=== PATIENT | female | born 1990 | race Two or more races ===

== ENCOUNTER 2023-10-30 13:45 | Outpatient (AMB) | payer OTHER, SELFPAY ==
--- NOTE | 2023-10-30 13:48 | A.OFFVIS_ITS ---
Vital Signs 10/30/23 13:50 Height 5 ft 3 in Weight 184 lb 1.376 oz BMI 32.6 BP 108/76 Blood Pressure Location Rt brachial Position Sitting Pulse 75 Pulse Source Pulse Oximeter Pulse Oximetry (%) 98 Oxygen Delivery Method Room Air Intake Visit Reasons: chronic cough Assistant Director Of Security Services: Assistant Director Of Security Present Assistant Director Of Security Name: [id number] [place] Allergies No Known Allergies Allergy (Verified 10/30/23 13:57) HPI HPI chronic cough: Details: Tracy is a pleasant 33 year old female, never smoker, with underlying HTN, GERD and anxiety. She was referred by PCP for pulmonary evaluation. She reports more notable wheezing, chest tightness and dyspnea on exertion over the last 4-5 months. She denies h/o asthma. She has noticed symptoms being triggered by particular scents. She denies any seasonal allergies. Reports occasional post nasal drip, however mild and uses flonase with good effect. She reports GERD symptoms are controlled. She denies any pertinent family history. She denies any occupational exposures. Review of Systems Const Denies chills, Denies excessive sweating, Denies fever(s), Denies headache(s) and Denies night sweats Eyes Denies dry eyes, Denies irritation and Denies itchy eyes ENT Reports Normal hearing present, Denies headache(s), Denies nasal congestion, Denies nasal discharge and Denies sore throat Card Denies chest pain, Denies chest pain at rest, Denies chest pain with activity, Denies claudication, Denies dyspnea, Denies orthopnea and Denies paroxysmal nocturnal dyspnea Resp Denies chest congestion, Denies cough, Denies excessive phlegm production, Denies pain on inspiration, Denies pain with cough, Denies dyspnea and Denies stridor Musc Denies myalgias Neuro Reports Normal hearing present and Denies headache(s) Endo Denies excessive sweating Stephan/Lymph Denies lymphadenopathy Aller/Immun Denies itchy eyes and Denies seasonal rhinorrhea Physical Exam Vital Signs: Last Vital Signs Pulse 75 10/30/23 13:50 BP 108/76 10/30/23 13:50 Pulse Ox 98 10/30/23 13:50 Oxygen Delivery Method Room Air 10/30/23 13:50 BMI result Body Mass Index 32.6 Const General: cooperative, healthy appearing, comfortable, no acute distress, well developed and alert Orientation/consciousness: patient oriented x3 Limitations: no limitations HEENT Head: Yes normal to inspection, Yes normocephalic and Yes atraumatic Ears: hearing grossly normal bilaterally and external ears normal Eyes General: appearance normal, both eyes and all related structures Eyelids: Yes eyelids normal Sclerae: sclerae normal EOM: EOMs intact bilaterally Neck Neck: Yes normal visual inspection and Yes no lymphadenopathy Lymphatic: no lymphadenopathy noted Chest Chest palpation & inspection: normal inspection of the chest Resp Effort & Inspection: normal respiratory effort, able to speak in complete sentences, no audible wheezes, no cough, no stridor, not tachypneic, no tripod positioning and no use of accessory muscles Auscultation: clear to auscultation bilaterally Cardio Jugular venous distension: no JVD Rate: regular rate Rhythm: regular rhythm Skin Other: warm, dry General skin exam: no rashes or lesions noted Neuro General: patient oriented x3 Cranial nerves: Yes Normal hearing present Cognition (Neuro): normal cognition Gait exam (Neuro): Normal gait present Extrem General: Yes normal to inspection, Yes capillary refill normal, Yes no clubbing, cyanosis or edema and Yes no pedal edema Psych Appearance: grossly normal and well kempt Speech and movement: Normal speech and movement present and Clear speech present Affect: normal affect Attitude: cooperative Thought process: Normal thought process present Thought content: Normal thought content present Insight: Good insight present (Psych) Judgement: Good judgement present (Psych) Assessment & Plan Assessment & Plan (1) Reactive airway disease: Code(s): J45.909 - Unspecified asthma, uncomplicated Category: Medical (2) Dyspnea on exertion: Code(s): R06.09 - Other forms of dyspnea Category: Medical Plan Tracy presents with symptoms suggestive of asthma. Will send for PFT to assess and empirically start ICS. Discussed importance of good oral hygiene to prevent thrush. All questions were answered and patient is in agreement of plan. Will follow up to review results or sooner if needed. Orders: Orders PFT pulmonary function test Today R06.09 - Other forms of dyspnea Medications: New fluticasone furoate 100 mcg/actuation (Arnuity Ellipta) 1 inh inhalation DAILY 30 ea 3RF Coding Level of Care Code New Pt Level 3 (71003) Diagnoses Reactive airway disease J45.909 Dyspnea on exertion R06.09
[2023-10-30 13:50] VITALS: BP 108/76; PULSE 75; O2SAT 98; BMI 32.6
== END 2023-10-30 14:49 | disposition home or self-care (01) ==
PROVIDERS: PCP Hospitalist; Visit Provider Nurse Practitioner Family
DX: J45.909 Unspecified asthma, uncomplicated (principal); R06.09 Other forms of dyspnea
CPT/HCPCS: 99203

== ENCOUNTER → 2023-10-30 13:45 | Outpatient (BNVA) | payer OTHER, SELFPAY | PROVIDERS: PCP Hospitalist; Visit Provider Nurse Practitioner Family | DX: J45.909 Unspecified asthma, uncomplicated (principal); R06.09 Other forms of dyspnea | CPT/HCPCS: 99202 ==

== ENCOUNTER 2024-02-01 14:24 | Emergency (ER) | payer OTHER, SELFPAY | END 2024-02-01 14:57 | disposition left against medical advice (07) | PROVIDERS: Emergency Provider Emergency Medicine; PCP Hospitalist | DX: J45.909 Unspecified asthma, uncomplicated (principal); Z53.21 Procedure and treatment not carried out due to patient leaving prior to being seen by health care provider ==

== ENCOUNTER 2024-02-01 14:33 | Outpatient (REF) | payer OTHER, SELFPAY ==
[2024-02-01 10:22] VITALS: PULSE 74; O2SAT 99
--- NOTE | 2024-02-01 14:41 | PFT_ITS ---
Flows: FEV1: 71 % of predicted at 2.20 L FVC: 66 % of predicted at 2.43 L FEV1/FVC: 91 % Secondary to unavailability of Romanian site interpreter patient was only willing to try spirometry testing. Impression: Spirometry suggests restrictive ventilatory defect. Secondary to unavailability of Romanian site interpreter patient was only willing to try spirometry testing. Full pulmonary function test rescheduled. MTDD
== END 2024-02-01 14:34 | disposition home or self-care (01) ==
LOC: HO.RESP 14:33
PROVIDERS: PCP Hospitalist; Visit Provider Nurse Practitioner Family
DX: R06.09 Other forms of dyspnea (principal)
CPT/HCPCS: 94010; 94640; 94727; 94729

== ENCOUNTER → 2024-02-01 14:41 | Outpatient (BNV) | payer OTHER, SELFPAY | PROVIDERS: PCP Hospitalist; Visit Provider Internal Medicine Pulmonary Disease | DX: R06.09 Other forms of dyspnea (principal) | CPT/HCPCS: 94060 ==

== ENCOUNTER 2024-06-12 12:45 | Outpatient (REF) | payer OTHER, SELFPAY ==
--- NOTE | 2024-06-12 12:45 | PFT_ITS ---
Indication: Dyspnea Spirometry [FEV1 to FVC 88%; FEV1 2.61 L; FVC 2.96 L. No significant response to bronchodilators noted.] Lung Volumes [Total lung capacity 78% predicted; expiratory reserve volume 56% predicted] Diffusion Capacity [DLCO 94% predicted] Comparisons [none] Interpretation [No obstructive ventilatory defect. No significant response to bronchodilators noted. The patient does have a restrictive ventilatory defect consistent mild restrictive lung disease. His expiratory reserve volume is also decreased likely secondary to an elevated BMI. Capacity is within normal limits. Correlation warranted.] MTDD
[2024-06-12 13:32] VITALS: PULSE 92; O2SAT 99
--- OUTSIDE RECORDS SUMMARY | 2024-06-12 13:49 | XMS_ITS ---
Author Organization [facility] Address [address] [place] [id number] Care Team Providers Care Triage Technician Name Role Phone BEAN DAVIDSON Primary Care Provider REASON FOR VISIT Lab/Rx Medications Medication SIG (Take, Route, Frequency, Duration) Notes Start Date End Date Status Vitamin D (Ergocalciferol) 1.25 MG (21915 UT) TAKE 1 CAPSULE BY MOUTH WEEKLY Orally once a week for 90 days Active Encounters Encounter Location Date Provider Diagnosis [facility] [address] [phone] 06/10/2024 BEAN DAVIDSON Plan Of Treatment Medication Medication Name Sig Start Date Stop Date Notes Vitamin D (Ergocalciferol) 1 .25 MG (17538 UT) TAKE 1 CAPSULE BY MOUTH WEEKLY Orally once a week for 90 days Next Appt Details Provider Name:BEAN DAVIDSON , 06/02/2025 01:00:00 PM, [address] [place] [address], [place], [phone], Progress Notes * Tracy DENISDOB:1990 (33 yo F)Acc No.[id number]:06/10/2024 Patient:?ADEEL Tracy :1990???Age:33 Y???Sex:Female Address:[address] [place] [address] [place], [address] * Refills? Refill Vitamin D (Ergocalciferol) Capsule, 1.25 MG (69339 UT), Orally, 12, TAKE 1 CAPSULE BY MOUTH WEEKLY, once a week, 90 days, Refills=0 * true * Date:? Generated for Lexx hood/Livan/Kumar on:?06/12/2024 01:49 PM EDT
--- OUTSIDE RECORDS SUMMARY | 2024-06-12 13:49 | XMS_ITS | Patient Health Record ---
Author Organization [facility] Address [address] [place] [address] Care Team Providers Care Awning Installer Name Role Phone BEAN DAVIDSON Primary Care Provider Jazmynshraddha Phil Unavailable [phone] Allergies No Known Allergies Results Component Value Reference Range Notes CBC, Platelet, No Differenti al-[id number] Reviewed date:06/10/2024 08:06:02 AM Interpretation: Performing Lab:[place]ty [place], [address] [facility], Phone - [phone], Director - MDJodry Notes/Report: WBC 6.7 3.4-10.8 x10E3/uL RBC 4.93 3.77-5.28 x10E6/uL Hemoglobin 12.5 11.1-15.9 g/dL Hematocrit 39.0 34.0-46.6 % MCV 79 79-97 fL MCH 25.4 26.6-33.0 pg MCHC 32.1 31.5-35.7 g/dL RDW 12.8 11.7-15.4 % Platelets 217 150-450 x10E3/uL Lipid Panel-[id number] Reviewed date:06/10/2024 08:06:05 AM Interpretation: Performing Lab:Kitty [place], [address] [facility], [place], Phone - [phone], Director - MDJodry Notes/Report: Cholesterol, Total 182 100-199 mg/dL Triglycerides 90 0-149 mg/dL HDL Cholesterol 45 >39 mg/dL VLDL Cholesterol Kade 17 5-40 mg/dL LDL Chol Calc (NIH) 120 0-99 mg/dL Comp. Metabolic Panel (14)-[id number] Reviewed date:06/10/2024 08:06:07 AM Interpretation: Performing Lab:Kitty [place], [facility], Phone - [phone], Director - [facility] Notes/Report: Glucose 81 70-99 mg/dL BUN 10 6-20 mg/dL Creatinine 0.62 0.57-1.00 mg/dL eGFR 122 >59 mL/min/1.73 BUN/Creatinine Ratio 16 9-23 Sodium 138 134-144 mmol/L Potassium 4.0 3.5-5.2 mmol/L Chloride 103 96-106 mmol/L Carbon Dioxide, Total 22 20-29 mmol/L Calcium 9.2 8.7-10.2 mg/dL Protein, Total 6.8 6.0-8.5 g/dL Albumin 4.3 3.9-4.9 g/dL Globulin, Total 2.5 1.5-4.5 g/dL Bilirubin, Total 1.1 0.0-1.2 mg/dL Alkaline Phosphatase 79 44-121 IU/L AST (SGOT) 11 0-40 IU/L ALT (SGPT) 12 0-32 IU/L 25-Hydroxyvitamin D LCMS D2+ [id number] Reviewed date:06/10/2024 12:21:22 PM Interpretation: Performing [facility] [address] [place] [address], Phone - [phone], Director - [facility] Notes/Report: 25-Hydroxy, Vitamin D 13 Reference Range: All Ages: Target levels 30 - 100 25-Hydroxy, Vitamin D-2 6.3 This test was developed and its performance characteristics determined by [facility]. It has not been cleared or approved by the Food and Drug Administration. 25-Hydroxy, Vitamin D-3 6.6 This test was developed and its performance characteristics determined by [facility]. It has not been cleared or approved by the Food and Drug Administration. Comp. Metabolic Panel (14)-3 [id number] Reviewed date:08/01/2023 12:00:25 PM Interpretation: Performing [facility], Phone - [phone], Director - [facility] Notes/Report: Glucose 83 70-99 mg/dL BUN 12 6-20 mg/dL Creatinine 0.63 0.57-1.00 mg/dL eGFR 122 >59 mL/min/1.73 BUN/Creatinine Ratio 19 9-23 Sodium 139 134-144 mmol/L Potassium 4.3 3.5-5.2 mmol/L Chloride 105 96-106 mmol/L Carbon Dioxide, Total 21 20-29 mmol/L Calcium 9.1 8.7-10.2 mg/dL Protein, Total 6.3 6.0-8.5 g/dL Albumin 4.0 4.0-5.0 g/dL Globulin, Total 2.3 1.5-4.5 g/dL Bilirubin, Total 0.6 0.0-1.2 mg/dL Alkaline Phosphatase 82 44-121 IU/L AST (SGOT) 12 0-40 IU/L ALT (SGPT) 9 0-32 IU/L Vitamin D, [id number] Reviewed date:08/01/2023 12:00:11 PM Interpretation: Performing Lab:Kitty [place], [address] [facility], Phone - [phone], Director - Mariam Notes/Report: Vitamin D, 25-Hydroxy 11.9 30.0-100.0 ng/mL Vitamin D deficiency has been defined by the [place] [employer] and an Endocrine Society practice guideline as a level of serum 25-OH vitamin D less than 20 ng/mL (1,2). The Endocrine Society went on to further define vitamin D insufficiency as a level between 21 and 29 ng/mL (2). 1. IOM ([place] [employer]). 2010. Dietary reference intakes for calcium and D. [place]: The National Academies Press. 2. Kumar MF, Ashley NC, Atul NIX, et al. Evaluation, treatment, and prevention of vitamin D deficiency: an Endocrine Society clinical practice guideline. JCEM. 2010; 96(7):1911-30. CBC with Diff, Platelet, NLR -[id number] Reviewed date:08/01/2023 11:59:57 AM Interpretation: Performing Lab:[place]ord [place], [address] [facility], [place], Phone - [phone], Director - Mariam Notes/Report: WBC 7.1 3.4-10.8 x10E3/uL RBC 4.41 3.77-5.28 x10E6/uL Hemoglobin 11.4 11.1-15.9 g/dL Hematocrit 36.6 34.0-46.6 % MCV 83 79-97 fL MCH 25.9 26.6-33.0 pg MCHC 31.1 31.5-35.7 g/dL RDW 14.1 11.7-15.4 % Platelets 232 150-450 x10E3/uL Neutrophils 65 Not Estab. % Lymphs 27 Not Estab. % Monocytes 4 Not Estab. % Eos 3 Not Estab. % Basos 1 Not Estab. % Neutrophils (Absolute) 4.6 1.4-7.0 x10E3/uL Lymphs (Absolute) 1.9 0.7-3.1 x10E3/uL Neut/Lymph Ratio 2.4 0.0-2.9 ratio Published COVID-19 studies suggest: Low likelihood of severe COVID-19 disease progression 0.0-2.9 High likelihood of severe COVID-19 disease progression >4.9 Monocytes(Absolute) 0.3 0.1-0.9 x10E3/uL Eos (Absolute) 0.2 0.0-0.4 x10E3/uL Baso (Absolute) 0.0 0.0-0.2 x10E3/uL Immature Granulocytes 0 Not Estab. % Immature Grans (Abs) 0.0 0.0-0.1 x10E3/uL Vitamin D, [id number] Reviewed date:10/02/2023 08:52:42 AM Interpretation: Performing Lab:Kitty [place], [address] [place] [address], Phone - [phone], Director - Mariam Notes/Report: Vitamin D, 25-Hydroxy 23.7 30.0-100.0 ng/mL Vitamin D deficiency has been defined by the [place] [employer] and an Endocrine Society practice guideline as a level of serum 25-OH vitamin D less than 20 ng/mL (1,2). The Endocrine Society went on to further define vitamin D insufficiency as a level between 21 and 29 ng/mL (2). 1. IOM ([place] [employer]). 2010. Dietary reference intakes for calcium and D. [place]: The National Academies Press. 2. Kumar MF, Ashley GREEN, Atul NIX, et al. Evaluation, treatment, and prevention of vitamin D deficiency: an Endocrine Society clinical practice guideline. JCEM. 2010; 96(7):1911-30. Reason For Referral Reason 48 hour BP monitor- Hypertension, reading in the office is normal, done at [facility] it ranged between 150-160/110-100 Diagnosis 1 Essential (primary) hypertension (I10) Referral Organization [facility] Referring Provider First Name Phil Referring Provider Last Name Lianna Referred Provider Specialty Nephrology Clinical Notes Faxed to Becky WESTBROOK Latraya 08/01/2023 02:06:24 PM > Referral Priority Urgent Reason Evaluation and manag ement - 48 hr BP Monitor Diagnosis 1 Essential (primary) hypertension (I10) Referral Organization [facility] Referring Provider First Name Phil Referring Provider Last Name Lianna Referred Provider Specialty Nephrology General Notes Referral sent to [facility] - Dept will call patient for scheduling.Flor Latraya 08/17/2023 08:47:08 AM > Referral Priority Routine Reason Please davidson jimenez Diagnosis 1 Chronic cough (R05.3 ) Referral Organization [facility] Referring Provider First Name Phil Referring Provider Last Name Lianna Referred Provider Specialty Pulmonology General Notes Faxed to Richard Diaz Brittney 09/28/2023 01:05:08 PM > Referral Priority Routine Medications Medication SIG (Take, Route, Frequency, Duration) Notes Start Date End Date Status Prazosin HCl 2 MG 1 capsule at bedtime Orally Once a day for 30 day(s) Active Ciprofloxacin-dexAMETHason e 0.3-0.1 % 4 drops into affected ear Otic Twice a day for 7 days 09/07/2023 Active Ergocalciferol 1.25 MG (69663 UT) 1 capsule every week Orally 12 weeks for 30 days 07/31/2023 Not-Taking Ibuprofen 600 MG 1 tablet with food o r milk as needed Orally once a day Active Vitamin D3 20 MCG (800 UNIT) 1 tablet Orally Once a day for 30 days 09/25/2023 Active Magnesium Oxide 400 MG 1 tablet as neede d Orally Once a day for 30 day(s) Active Albuterol Sulfate HFA 108 (90 Base) MCG/ACT 1 puff as needed Inhalation every 4 hrs for 30 days 09/07/2023 Active Doxepin HCl 25 MG 1 capsule at bedtime Orally Once a day for 30 day(s) Active FLUoxetine HCl 20 MG 1 capsule Orally On ce a day for 30 day(s) Active Omeprazole 20 MG TAKE 1 CAPSULE BY MOUTH EVERY DAY 30 MINUTES BEFORE MORNING MEAL FOR 90 DAYS for 90 Active SUMAtriptan Succinate 50 MG TAKE 1 TABLET BY MOUTH TWICE A DAY AT LEAST 2 HOURS BETWEEN DOSES NEEDED FOR 30 DAYS for 30 Active Loratadine 10 MG 1 tablet Orally Once a day for 90 days 12/01/2022 Active Cyclobenzaprine HCl 5 MG 1 tablet at bed time as needed Orally Once a day for 30 day(s) Active Ergocalciferol 1.25 MG (79587 UT) 1 capsule Orally once a week for 30 days Not-Taking Xulane 150-35 MCG/24HR as directed Transdermal Active Gabapentin 100 MG 2 capsule Orally Onc e a day for 30 days Active traZODone HCl 100 MG 1 tablet at bedtime Orally Once a day for 30 day(s) Active Fluticasone Propionate 50 MCG/ACT SPRAY 1 SPRAY INTO EACH NOSTRIL EVERY DAY FOR 90 DAYS for 90 Active Venlafaxine HCl 37.5 MG 1 tablet with fo od Orally Once a day for 30 day(s) Active Ofloxacin 0.3 % 10 drops into affect ed ear Otic twice a day for 7 days 07/27/2023 Active Vitamin D (Ergocalciferol) 1.25 MG (60755 UT) TAKE 1 CAPSULE BY MOUTH WEEKLY Orally once a week for 90 days Active Immunizations Vaccine Route Administration Date Status Comme nts COVID Unknown 01/20/2021 Administered pfizer COVID 19 Pfizer Unknown 09/08/2020 Administered COVID Pfizer Unknown 03/15/2021 Administered Hep B, adult dosage, for intramuscular use Unknown 11/05/2015 Administered MMR Unknown 07/01/2015 Administered MMR Unknown 08/01/2015 Administered Tdap Unknown 09/23/2015 Administered Tdap Unknown 06/28/2016 Administered Social History Tobacco Use: Social History Observation Description Date Details (start date - stop date) Never Smoker NA - NA Tobacco Use/Smoking Question Answer Notes Are you a nonsmoker Problems Problem Type SNOMED Code ICD Code Onset Dates Problem Status W/U Status Risk Notes Problem Moderate recurrent major depression (68476821) Major depressive disorder, recurrent, moderate (F33.1) Active confirmed Problem Generalized anxiety disorder (44727000) Generalized anxiety disorder (F41.1) Active confirmed Problem Migraine with aura (7764711) Migraine with aura, not intractable, without status migrainosus (G43.109) Active confirmed Problem Insomnia (652134793) Insomnia, unspecified (G47.00) Active confirmed Problem Essential hypertension (00899575) Essential (primary) hypertension (I10) Active confirmed Problem Gastro-esophageal reflux disease without esophagitis (957394399) Gastro-esophage al reflux disease without esophagitis (K21.9) Active confirmed Problem [id number] Lumbago with sciatica, right side (M54.41) Active confirmed Problem 276461488 Lumbago with sciatica, left side (M54.42) Active confirmed Problem Fibromyalgia (547336076) Fibromyalgia (M79.7) Active confirmed Problem Paresthesia (finding) (73512092) Paresthesia of skin (R20.2) Active confirmed Problem Vitamin D deficiency (58645004) Vitamin D deficiency (E55.9) Active confirmed Problem Chronic fatigue syndrome (65336481) Chronic fatigue (R53.82) Active confirmed Vital Signs Heart Rate 82 /min 05/29/2024 Temperature 98.2 degrees Fahrenheit 05/29/2024 Blood pressure diastolic 80 mm Hg 05/29/2024 Oximetry 99 % 05/29/2024 Height 61 in 05/29/2024 Blood pressure systolic 122 mm Hg 05/29/2024 Weight 187.1 lbs 05/29/2024 BMI 35.35 kg/m2 05/29/2024 Encounters Encounter Location Date Provider Diagnosis [address] [address] 08/30/2023 Phil Dsouza [address] [address] 07/27/2023 Phil Dsouza Spontaneous ecchymos es R23.3 ; Elevated blood-pressure reading, without diagnosis of hypertension R03.0 ; Atypical chest pain R07.89 ; Otalgia, right ear H92.01 ; Chronic fatigue R53.82 ; Vitamin D deficiency, unspecified E55.9 ; Postnasal drip R09.82 and Paresthesia of skin R20.[address] [address] 09/07/2023 Ghadeer Mazloum Essential (primary) hypertension I10 ; Cough R05.9 ; Otalgia, unspecified ear H92.09 and Vitamin D deficiency, unspecified E55.[address] [place] [address] 05/29/2024 BEAN BARRAGAN Annual physical exam Z00.00 ; Generalized anxiety disorder F41.1 ; Major depressive disorder, recurrent, moderate F33.1 ; Migraine with aura, not intractable, without status migrainosus G43.109 ; Vitamin D deficiency E55.9 ; Encounter for screening for cardiovascular disorders Z13.6 ; Postnasal drip R09.82 ; Otalgia, unspecified ear H92.09 and Otalgia, right ear H92.[address] [place] [address] 07/28/2023 [facility] Essential (primary) hypertension I10 [address] [place] [address] 07/28/[address] [place] [address] 09/19/[address] [place] [address] 09/25/2023 [facility] Vitamin D deficiency E55.[address] [place] [address] 09/28/[address] [place] [address] 12/20/[address] [place] [address] 06/10/2024 BEAN BARRAGAN Assessments Encounter Date Diagnosis (ICD Code) Assessment Notes Treatment Notes Treatment Clinical Notes Section Notes 07/27/2023 Elevated blood-pressure reading, without diagnosis of hypertension (ICD-10 - R03.0) Mrs. Boswell is a 32-year-old Setswana-speakin g lady with anxiety/depres evelyn/PTSD, migraine headaches followed by neurology, right knee pain and low back pain and follows up with Dr. Payne here for BP monitoring. Plan as follows: Elevated BP: Blood pressure in the office is WNL. Though she states that the readings at the [facility] pharmacy are elevated. I've placed an order for 48 hour of BP monitor through nephrology. As for now advised patient avoiding Ibuprofen. Appropriate hydration and cut down on salt intake. Atypical chest pain: - Pain is localized been occurring for the past week. BP is normal, HR is normal, Oxygen level is WNL r/o any red flags like dissection, pneumothorax, does not have cough and lungs CTA r/o pneumonia. EKG shows NSR, with HR of 74 no elevated segments no T wave inversions. DDx; gastritis due to Ibuprofen. Advised avoiding NSAIDs and taking omeprazole. Chronic fatigue Ecchymoses - She has not been taking vitamin D pills. I refilled the med. I will also order CBC to r/o anemia as it potentially cause fatigue and ecchymosis and vitamin D for fatigue. - Patient has chronic fatigue she is on multiple medications that can cause fatigue. We have done labs in the past to r/o autoimmune diseases and all were negative. Paresthesia of skin: radiculopathy: EEG done last year and shows that patient has nerve entrapment. She has been doing injections with Dr. Payne. She has an upcoming appt with him. Started patient on gabapentin for radiculopathy. I have rendered the services for this patient under direct supervision of Dr. Davidson, who did not see the patient but was available upon request 07/27/2023 Spontaneous ecchymoses (ICD-10 - R23.3) Mrs. Boswell is a 32-year-old Setswana-speakin g lady with anxiety/depres evelyn/PTSD, migraine headaches followed by neurology, right knee pain and low back pain and follows up with Dr. Payne here for BP monitoring. Plan as follows: Elevated BP: Blood pressure in the office is WNL. Though she states that the readings at the [facility] pharmacy are elevated. I've placed an order for 48 hour of BP monitor through nephrology. As for now advised patient avoiding Ibuprofen. Appropriate hydration and cut down on salt intake. Atypical chest pain: - Pain is localized been occurring for the past week. BP is normal, HR is normal, Oxygen level is WNL r/o any red flags like dissection, pneumothorax, does not have cough and lungs CTA r/o pneumonia. EKG shows NSR, with HR of 74 no elevated segments no T wave inversions. DDx; gastritis due to Ibuprofen. Advised avoiding NSAIDs and taking omeprazole. Chronic fatigue Ecchymoses - She has not been taking vitamin D pills. I refilled the med. I will also order CBC to r/o anemia as it potentially cause fatigue and ecchymosis and vitamin D for fatigue. - Patient has chronic fatigue she is on multiple medications that can cause fatigue. We have done labs in the past to r/o autoimmune diseases and all were negative. Paresthesia of skin: radiculopathy: EEG done last year and shows that patient has nerve entrapment. She has been doing injections with Dr. Payne. She has an upcoming appt with him. Started patient on gabapentin for radiculopathy. I have rendered the services for this patient under direct supervision of Dr. Davidson, who did not see the patient but was available upon request 07/28/2023 Essential (primary) hypertension (ICD-10 - I10) 09/07/2023 Essential (primary) hypertension (ICD-10 - I10) Mrs. Boswell is a 32-year-old Setswana-speakin g lady with anxiety/depres evelyn/PTSD, migraine headaches followed by neurology, right knee pain and low back pain and follows up with Dr. Payne here for follow-up. Plan as follows HTN: Blood pressure in the office is WNL. Has an appt with Dr. Hodges in September for 48 hour of BP monitor through nephrology. Cough: - Lingering cough for the past 4 months. Occurs at night. Experiences wheezing and SOB. No history of asthma. Non-smoker. PE: Lungs CTAB, Oxygen is normal, no accessory muscle use. - Ordered X-ray of the lungs to r/o any abnormalities. Ordered PFTs test to r/o obstructive lung disease. Otalgia: - Ongoing ear pain. Uses q-tips regularly. BL ears are erythematous. No bulging is noted. Started patient on cipro ear drop. Educated on avoiding q-tips. Vitamin D deficiency: - Patient is on Vitamin D supplements. We will repeat labs before next visit. 09/07/2023 Cough (ICD-10 - R05.9) Mrs. Boswell is a 32-year-old Setswana-speakin g lady with anxiety/depres evelyn/PTSD, migraine headaches followed by neurology, right knee pain and low back pain and follows up with Dr. Payne here for follow-up. Plan as follows HTN: Blood pressure in the office is WNL. Has an appt with Dr. Hodges in September for 48 hour of BP monitor through nephrology. Cough: - Lingering cough for the past 4 months. Occurs at night. Experiences wheezing and SOB. No history of asthma. Non-smoker. PE: Lungs CTAB, Oxygen is normal, no accessory muscle use. - Ordered X-ray of the lungs to r/o any abnormalities. Ordered PFTs test to r/o obstructive lung disease. Otalgia: - Ongoing ear pain. Uses q-tips regularly. BL ears are erythematous. No bulging is noted. Started patient on cipro ear drop. Educated on avoiding q-tips. Vitamin D deficiency: - Patient is on Vitamin D supplements. We will repeat labs before next visit. 09/25/2023 Vitamin D deficiency (ICD-10 - E55.9) 05/29/2024 Annual physical exam (ICD-10 - Z00.00) is 33 years old Setswana speaking lady who is accompanied by her for an annual physical. She has generalized anxiety disorder/depre ssion, migraine headaches and she sees neurologist, vitamin D deficiency, fibromyalgia, chronic pain syndrome, lower back pain and she follows with physiatry. She also complains of postnasal dripping. Plan is as follows Migraine headaches. She follows up with Dr. Meraz and she is on sumatriptan 50 mg as needed. Generalized anxiety disorder/depre ssion/insomnia . She follows up with psychiatry Dr. Britton and her symptoms are pretty much under control at this point in time. Chronic pain syndrome/fibro myalgia. She follows up with physiatry Dr. Payne. She had intra-articula r injection in the right lower back area. She uses a cane to walk. She needs help with activities of daily living like dressing, preparing meals, laundry and transferring. Her primarily take care of her. Postnasal. It can be seasonal allergies or sinusitis. She is given Flonase nasal spray. Vitamin D deficiency. She has done high-dose vitamin D3 in the past. We will check weight daily levels Screening blood work ordered. She is up to date do not need specific screening. 07/27/2023 Atypical chest pain (ICD-10 - R07.89) Mrs. Boswell is a 32-year-old Setswana-speakin g lady with anxiety/depres evelyn/PTSD, migraine headaches followed by neurology, right knee pain and low back pain and follows up with Dr. Payne here for BP monitoring. Plan as follows: Elevated BP: Blood pressure in the office is WNL. Though she states that the readings at the [facility] pharmacy are elevated. I've placed an order for 48 hour of BP monitor through nephrology. As for now advised patient avoiding Ibuprofen. Appropriate hydration and cut down on salt intake. Atypical chest pain: - Pain is localized been occurring for the past week. BP is normal, HR is normal, Oxygen level is WNL r/o any red flags like dissection, pneumothorax, does not have cough and lungs CTA r/o pneumonia. EKG shows NSR, with HR of 74 no elevated segments no T wave inversions. DDx; gastritis due to Ibuprofen. Advised avoiding NSAIDs and taking omeprazole. Chronic fatigue Ecchymoses - She has not been taking vitamin D pills. I refilled the med. I will also order CBC to r/o anemia as it potentially cause fatigue and ecchymosis and vitamin D for fatigue. - Patient has chronic fatigue she is on multiple medications that can cause fatigue. We have done labs in the past to r/o autoimmune diseases and all were negative. Paresthesia of skin: radiculopathy: EEG done last year and shows that patient has nerve entrapment. She has been doing injections with Dr. Payne. She has an upcoming appt with him. Started patient on gabapentin for radiculopathy. I have rendered the services for this patient under direct supervision of Dr. Davidson, who did not see the patient but was available upon request 09/07/2023 Otalgia, unspecified ear (ICD-10 - H92.09) Mrs. Boswell is a 32-year-old Setswana-speakin g lady with anxiety/depres evelyn/PTSD, migraine headaches followed by neurology, right knee pain and low back pain and follows up with Dr. Payne here for follow-up. Plan as follows HTN: Blood pressure in the office is WNL. Has an appt with Dr. Hodges in September for 48 hour of BP monitor through nephrology. Cough: - Lingering cough for the past 4 months. Occurs at night. Experiences wheezing and SOB. No history of asthma. Non-smoker. PE: Lungs CTAB, Oxygen is normal, no accessory muscle use. - Ordered X-ray of the lungs to r/o any abnormalities. Ordered PFTs test to r/o obstructive lung disease. Otalgia: - Ongoing ear pain. Uses q-tips regularly. BL ears are erythematous. No bulging is noted. Started patient on cipro ear drop. Educated on avoiding q-tips. Vitamin D deficiency: - Patient is on Vitamin D supplements. We will repeat labs before next visit. 05/29/2024 Generalized anxiety disorder (ICD-10 - F41.1) is 33 years old Setswana speaking lady who is accompanied by her for an annual physical. She has generalized anxiety disorder/depre ssion, migraine headaches and she sees neurologist, vitamin D deficiency, fibromyalgia, chronic pain syndrome, lower back pain and she follows with physiatry. She also complains of postnasal dripping. Plan is as follows Migraine headaches. She follows up with Dr. Meraz and she is on sumatriptan 50 mg as needed. Generalized anxiety disorder/depre ssion/insomnia . She follows up with psychiatry Dr. Britton and her symptoms are pretty much under control at this point in time. Chronic pain syndrome/fibro myalgia. She follows up with physiatry Dr. Payne. She had intra-articula r injection in the right lower back area. She uses a cane to walk. She needs help with activities of daily living like dressing, preparing meals, laundry and transferring. Her primarily take care of her. Postnasal. It can be seasonal allergies or sinusitis. She is given Flonase nasal spray. Vitamin D deficiency. She has done high-dose vitamin D3 in the past. We will check weight daily levels Screening blood work ordered. She is up to date do not need specific screening. 09/07/2023 Vitamin D deficiency, unspecified (ICD-10 - E55.9) Mrs. Boswell is a 32-year-old Setswana-speakin g lady with anxiety/depres evelyn/PTSD, migraine headaches followed by neurology, right knee pain and low back pain and follows up with Dr. Payne here for follow-up. Plan as follows HTN: Blood pressure in the office is WNL. Has an appt with Dr. Hodges in September for 48 hour of BP monitor through nephrology. Cough: - Lingering cough for the past 4 months. Occurs at night. Experiences wheezing and SOB. No history of asthma. Non-smoker. PE: Lungs CTAB, Oxygen is normal, no accessory muscle use. - Ordered X-ray of the lungs to r/o any abnormalities. Ordered PFTs test to r/o obstructive lung disease. Otalgia: - Ongoing ear pain. Uses q-tips regularly. BL ears are erythematous. No bulging is noted. Started patient on cipro ear drop. Educated on avoiding q-tips. Vitamin D deficiency: - Patient is on Vitamin D supplements. We will repeat labs before next visit. 07/27/2023 Otalgia, right ear (ICD-10 - H92.01) Mrs. Boswell is a 32-year-old Setswana-speakin g lady with anxiety/depres evelyn/PTSD, migraine headaches followed by neurology, right knee pain and low back pain and follows up with Dr. Payne here for BP monitoring. Plan as follows: Elevated BP: Blood pressure in the office is WNL. Though she states that the readings at the [facility] pharmacy are elevated. I've placed an order for 48 hour of BP monitor through nephrology. As for now advised patient avoiding Ibuprofen. Appropriate hydration and cut down on salt intake. Atypical chest pain: - Pain is localized been occurring for the past week. BP is normal, HR is normal, Oxygen level is WNL r/o any red flags like dissection, pneumothorax, does not have cough and lungs CTA r/o pneumonia. EKG shows NSR, with HR of 74 no elevated segments no T wave inversions. DDx; gastritis due to Ibuprofen. Advised avoiding NSAIDs and taking omeprazole. Chronic fatigue Ecchymoses - She has not been taking vitamin D pills. I refilled the med. I will also order CBC to r/o anemia as it potentially cause fatigue and ecchymosis and vitamin D for fatigue. - Patient has chronic fatigue she is on multiple medications that can cause fatigue. We have done labs in the past to r/o autoimmune diseases and all were negative. Paresthesia of skin: radiculopathy: EEG done last year and shows that patient has nerve entrapment. She has been doing injections with Dr. Payne. She has an upcoming appt with him. Started patient on gabapentin for radiculopathy. I have rendered the services for this patient under direct supervision of Dr. Davidson, who did not see the patient but was available upon request 05/29/2024 Major depressive disorder, recurrent, moderate (ICD-10 - F33.1) is 33 years old Setswana speaking lady who is accompanied by her for an annual physical. She has generalized anxiety disorder/depre ssion, migraine headaches and she sees neurologist, vitamin D deficiency, fibromyalgia, chronic pain syndrome, lower back pain and she follows with physiatry. She also complains of postnasal dripping. Plan is as follows Migraine headaches. She follows up with Dr. Meraz and she is on sumatriptan 50 mg as needed. Generalized anxiety disorder/depre ssion/insomnia . She follows up with psychiatry Dr. Britton and her symptoms are pretty much under control at this point in time. Chronic pain syndrome/fibro myalgia. She follows up with physiatry Dr. Payne. She had intra-articula r injection in the right lower back area. She uses a cane to walk. She needs help with activities of daily living like dressing, preparing meals, laundry and transferring. Her primarily take care of her. Postnasal. It can be seasonal allergies or sinusitis. She is given Flonase nasal spray. Vitamin D deficiency. She has done high-dose vitamin D3 in the past. We will check weight daily levels Screening blood work ordered. She is up to date do not need specific screening. 05/29/2024 Migraine with aura, not intractable, without status migrainosus (ICD-10 - G43.109) is 33 years old Setswana speaking lady who is accompanied by her for an annual physical. She has generalized anxiety disorder/depre ssion, migraine headaches and she sees neurologist, vitamin D deficiency, fibromyalgia, chronic pain syndrome, lower back pain and she follows with physiatry. She also complains of postnasal dripping. Plan is as follows Migraine headaches. She follows up with Dr. Meraz and she is on sumatriptan 50 mg as needed. Generalized anxiety disorder/depre ssion/insomnia . She follows up with psychiatry Dr. Britton and her symptoms are pretty much under control at this point in time. Chronic pain syndrome/fibro myalgia. She follows up with physiatry Dr. Payne. She had intra-articula r injection in the right lower back area. She uses a cane to walk. She needs help with activities of daily living like dressing, preparing meals, laundry and transferring. Her primarily take care of her. Postnasal. It can be seasonal allergies or sinusitis. She is given Flonase nasal spray. Vitamin D deficiency. She has done high-dose vitamin D3 in the past. We will check weight daily levels Screening blood work ordered. She is up to date do not need specific screening. 07/27/2023 Chronic fatigue (ICD-10 - R53.82) Mrs. Boswell is a 32-year-old Setswana-speakin g lady with anxiety/depres evelyn/PTSD, migraine headaches followed by neurology, right knee pain and low back pain and follows up with Dr. Payne here for BP monitoring. Plan as follows: Elevated BP: Blood pressure in the office is WNL. Though she states that the readings at the [facility] pharmacy are elevated. I've placed an order for 48 hour of BP monitor through nephrology. As for now advised patient avoiding Ibuprofen. Appropriate hydration and cut down on salt intake. Atypical chest pain: - Pain is localized been occurring for the past week. BP is normal, HR is normal, Oxygen level is WNL r/o any red flags like dissection, pneumothorax, does not have cough and lungs CTA r/o pneumonia. EKG shows NSR, with HR of 74 no elevated segments no T wave inversions. DDx; gastritis due to Ibuprofen. Advised avoiding NSAIDs and taking omeprazole. Chronic fatigue Ecchymoses - She has not been taking vitamin D pills. I refilled the med. I will also order CBC to r/o anemia as it potentially cause fatigue and ecchymosis and vitamin D for fatigue. - Patient has chronic fatigue she is on multiple medications that can cause fatigue. We have done labs in the past to r/o autoimmune diseases and all were negative. Paresthesia of skin: radiculopathy: EEG done last year and shows that patient has nerve entrapment. She has been doing injections with Dr. Payne. She has an upcoming appt with him. Started patient on gabapentin for radiculopathy. I have rendered the services for this patient under direct supervision of Dr. Davidson, who did not see the patient but was available upon request 07/27/2023 Vitamin D deficiency, unspecified (ICD-10 - E55.9) Mrs. Boswell is a 32-year-old Setsw[place]-speakin g lady with anxiety/depres evelyn/PTSD, migraine headaches followed by neurology, right knee pain and low back pain and follows up with Dr. Payne here for BP monitoring. Plan as follows: Elevated BP: Blood pressure in the office is WNL. Though she states that the readings at the [facility] pharmacy are elevated. I've placed an order for 48 hour of BP monitor through nephrology. As for now advised patient avoiding Ibuprofen. Appropriate hydration and cut down on salt intake. Atypical chest pain: - Pain is localized been occurring for the past week. BP is normal, HR is normal, Oxygen level is WNL r/o any red flags like dissection, pneumothorax, does not have cough and lungs CTA r/o pneumonia. EKG shows NSR, with HR of 74 no elevated segments no T wave inversions. DDx; gastritis due to Ibuprofen. Advised avoiding NSAIDs and taking omeprazole. Chronic fatigue Ecchymoses - She has not been taking vitamin D pills. I refilled the med. I will also order CBC to r/o anemia as it potentially cause fatigue and ecchymosis and vitamin D for fatigue. - Patient has chronic fatigue she is on multiple medications that can cause fatigue. We have done labs in the past to r/o autoimmune diseases and all were negative. Paresthesia of skin: radiculopathy: EEG done last year and shows that patient has nerve entrapment. She has been doing injections with Dr. Payne. She has an upcoming appt with him. Started patient on gabapentin for radiculopathy. I have rendered the services for this patient under direct supervision of Dr. Davidson, who did not see the patient but was available upon request 05/29/2024 Vitamin D deficiency (ICD-10 - E55.9) is 33 years old Setswana speaking lady who is accompanied by her for an annual physical. She has generalized anxiety disorder/depre ssion, migraine headaches and she sees neurologist, vitamin D deficiency, fibromyalgia, chronic pain syndrome, lower back pain and she follows with physiatry. She also complains of postnasal dripping. Plan is as follows Migraine headaches. She follows up with Dr. Meraz and she is on sumatriptan 50 mg as needed. Generalized anxiety disorder/depre ssion/insomnia . She follows up with psychiatry Dr. Britton and her symptoms are pretty much under control at this point in time. Chronic pain syndrome/fibro myalgia. She follows up with physiatry Dr. Payne. She had intra-articula r injection in the right lower back area. She uses a cane to walk. She needs help with activities of daily living like dressing, preparing meals, laundry and transferring. Her primarily take care of her. Postnasal. It can be seasonal allergies or sinusitis. She is given Flonase nasal spray. Vitamin D deficiency. She has done high-dose vitamin D3 in the past. We will check weight daily levels Screening blood work ordered. She is up to date do not need specific screening. 05/29/2024 Encounter for screening for cardiovascular disorders (ICD-10 - Z13.6) is 33 years old Setsw[place] speaking lady who is accompanied by her for an annual physical. She has generalized anxiety disorder/depre ssion, migraine headaches and she sees neurologist, vitamin D deficiency, fibromyalgia, chronic pain syndrome, lower back pain and she follows with physiatry. She also complains of postnasal dripping. Plan is as follows Migraine headaches. She follows up with Dr. Meraz and she is on sumatriptan 50 mg as needed. Generalized anxiety disorder/depre ssion/insomnia . She follows up with psychiatry Dr. Britton and her symptoms are pretty much under control at this point in time. Chronic pain syndrome/fibro myalgia. She follows up with physiatry Dr. Payne. She had intra-articula r injection in the right lower back area. She uses a cane to walk. She needs help with activities of daily living like dressing, preparing meals, laundry and transferring. Her primarily take care of her. Postnasal. It can be seasonal allergies or sinusitis. She is given Flonase nasal spray. Vitamin D deficiency. She has done high-dose vitamin D3 in the past. We will check weight daily levels Screening blood work ordered. She is up to date do not need specific screening. 07/27/2023 Postnasal drip (ICD-10 - R09.82) Mrs. Boswell is a 32-year-old Setswana-speakin g lady with anxiety/depres evelyn/PTSD, migraine headaches followed by neurology, right knee pain and low back pain and follows up with Dr. Payne here for BP monitoring. Plan as follows: Elevated BP: Blood pressure in the office is WNL. Though she states that the readings at the [facility] pharmacy are elevated. I've placed an order for 48 hour of BP monitor through nephrology. As for now advised patient avoiding Ibuprofen. Appropriate hydration and cut down on salt intake. Atypical chest pain: - Pain is localized been occurring for the past week. BP is normal, HR is normal, Oxygen level is WNL r/o any red flags like dissection, pneumothorax, does not have cough and lungs CTA r/o pneumonia. EKG shows NSR, with HR of 74 no elevated segments no T wave inversions. DDx; gastritis due to Ibuprofen. Advised avoiding NSAIDs and taking omeprazole. Chronic fatigue Ecchymoses - She has not been taking vitamin D pills. I refilled the med. I will also order CBC to r/o anemia as it potentially cause fatigue and ecchymosis and vitamin D for fatigue. - Patient has chronic fatigue she is on multiple medications that can cause fatigue. We have done labs in the past to r/o autoimmune diseases and all were negative. Paresthesia of skin: radiculopathy: EEG done last year and shows that patient has nerve entrapment. She has been doing injections with Dr. Payne. She has an upcoming appt with him. Started patient on gabapentin for radiculopathy. I have rendered the services for this patient under direct supervision of Dr. Davidson, who did not see the patient but was available upon request 07/27/2023 Paresthesia of skin (ICD-10 - R20.2) Mrs. Boswell is a 32-year-old [place]-speakin g lady with anxiety/depres evelyn/PTSD, migraine headaches followed by neurology, right knee pain and low back pain and follows up with Dr. Payne here for BP monitoring. Plan as follows: Elevated BP: Blood pressure in the office is WNL. Though she states that the readings at the [facility] pharmacy are elevated. I've placed an order for 48 hour of BP monitor through nephrology. As for now advised patient avoiding Ibuprofen. Appropriate hydration and cut down on salt intake. Atypical chest pain: - Pain is localized been occurring for the past week. BP is normal, HR is normal, Oxygen level is WNL r/o any red flags like dissection, pneumothorax, does not have cough and lungs CTA r/o pneumonia. EKG shows NSR, with HR of 74 no elevated segments no T wave inversions. DDx; gastritis due to Ibuprofen. Advised avoiding NSAIDs and taking omeprazole. Chronic fatigue Ecchymoses - She has not been taking vitamin D pills. I refilled the med. I will also order CBC to r/o anemia as it potentially cause fatigue and ecchymosis and vitamin D for fatigue. - Patient has chronic fatigue she is on multiple medications that can cause fatigue. We have done labs in the past to r/o autoimmune diseases and all were negative. Paresthesia of skin: radiculopathy: EEG done last year and shows that patient has nerve entrapment. She has been doing injections with Dr. Payne. She has an upcoming appt with him. Started patient on gabapentin for radiculopathy. I have rendered the services for this patient under direct supervision of Dr. Davidson, who did not see the patient but was available upon request 05/29/2024 Postnasal drip (ICD-10 - R09.82) is 33 years old Setsw[place] speaking lady who is accompanied by her for an annual physical. She has generalized anxiety disorder/depre ssion, migraine headaches and she sees neurologist, vitamin D deficiency, fibromyalgia, chronic pain syndrome, lower back pain and she follows with physiatry. She also complains of postnasal dripping. Plan is as follows Migraine headaches. She follows up with Dr. Meraz and she is on sumatriptan 50 mg as needed. Generalized anxiety disorder/depre ssion/insomnia . She follows up with psychiatry Dr. Britton and her symptoms are pretty much under control at this point in time. Chronic pain syndrome/fibro myalgia. She follows up with physiatry Dr. Payne. She had intra-articula r injection in the right lower back area. She uses a cane to walk. She needs help with activities of daily living like dressing, preparing meals, laundry and transferring. Her primarily take care of her. Postnasal. It can be seasonal allergies or sinusitis. She is given Flonase nasal spray. Vitamin D deficiency. She has done high-dose vitamin D3 in the past. We will check weight daily levels Screening blood work ordered. She is up to date do not need specific screening. 05/29/2024 Otalgia, unspecified ear (ICD-10 - H92.09) is 33 years old [place] speaking lady who is accompanied by her for an annual physical. She has generalized anxiety disorder/depre ssion, migraine headaches and she sees neurologist, vitamin D deficiency, fibromyalgia, chronic pain syndrome, lower back pain and she follows with physiatry. She also complains of postnasal dripping. Plan is as follows Migraine headaches. She follows up with Dr. Meraz and she is on sumatriptan 50 mg as needed. Generalized anxiety disorder/depre ssion/insomnia . She follows up with psychiatry Dr. Britton and her symptoms are pretty much under control at this point in time. Chronic pain syndrome/fibro myalgia. She follows up with physiatry Dr. Payne. She had intra-articula r injection in the right lower back area. She uses a cane to walk. She needs help with activities of daily living like dressing, preparing meals, laundry and transferring. Her primarily take care of her. Postnasal. It can be seasonal allergies or sinusitis. She is given Flonase nasal spray. Vitamin D deficiency. She has done high-dose vitamin D3 in the past. We will check weight daily levels Screening blood work ordered. She is up to date do not need specific screening. 05/29/2024 Otalgia, right ear (ICD-10 - H92.01) is 33 years old [place] speaking lady who is accompanied by her for an annual physical. She has generalized anxiety disorder/depre ssion, migraine headaches and she sees neurologist, vitamin D deficiency, fibromyalgia, chronic pain syndrome, lower back pain and she follows with physiatry. She also complains of postnasal dripping. Plan is as follows Migraine headaches. She follows up with Dr. Meraz and she is on sumatriptan 50 mg as needed. Generalized anxiety disorder/depre ssion/insomnia . She follows up with psychiatry Dr. Britton and her symptoms are pretty much under control at this point in time. Chronic pain syndrome/fibro myalgia. She follows up with physiatry Dr. Payne. She had intra-articula r injection in the right lower back area. She uses a cane to walk. She needs help with activities of daily living like dressing, preparing meals, laundry and transferring. Her primarily take care of her. Postnasal. It can be seasonal allergies or sinusitis. She is given Flonase nasal spray. Vitamin D deficiency. She has done high-dose vitamin D3 in the past. We will check weight daily levels Screening blood work ordered. She is up to date do not need specific screening. Plan Of Treatment Pending Test Test Name Order Date Pulmonary Function Test 09/07/2023 25 HYDROXY VITAMIN D2 D3 02/02/2022 25OH VITAMIN D 10/21/2021 CBC (COMPLETE BLOOD COUNT) WITH DIFF COMPREHENSIVE METABOLIC PANEL 10/21/2021 FERRITIN 05/05/2021 IRON & TIBC 05/05/2021 TSH WITH REFLEX TO FT4 10/21/2021 Xray: Chest-Standard Frontal & Lat 09/06 Xray: Limited Spine/Lumbr 2 Or 3 Vws Next Appt Details Provider Name:BEAN DAVIDSON , 06/02/2025 01:00:00 PM, [address] [place] [address], [place], [address], Insurance Providers Payer Name Payer Address Payer Phone Subscriber Number Group Number Insured Name Patient Relationship to Insured Coverage Start Date Coverage End Date [facility]) [address] [address] [place] [address] [id number] Tracy Boswell Self - patient is the insured Medical (General) History Medical History History ICD Code low back pain right knee pain, sees Dr. Payne anxiety/depression/PTSD afte r her father was tortured and killed in [place], sees Dr. Swenson and a therapist migraine headaches, sees [facility] neurol ogy Surgical History Surgery Date(Month/Year) lump removed from right breast
--- OUTSIDE RECORDS SUMMARY | 2024-06-12 13:49 | XMS_ITS ---
Author Organization [facility] Address [address] [place] [address] Care Team Providers Care Plastic Roller Name Role Phone STUART DEL ANGEL Primary Care Provider [phone] Allergies No Known Allergies REASON FOR VISIT CPE Medications Medication SIG (Take, Route, Frequency, Duration) Notes Start Date End Date Status Doxepin HCl 25 MG 1 capsule at bedtime Orally Once a day for 30 day(s) Active FLUoxetine HCl 20 MG 1 capsule Orally On ce a day for 30 day(s) Active SUMAtriptan Succinate 50 MG TAKE 1 TABLET BY MOUTH TWICE A DAY AT LEAST 2 HOURS BETWEEN DOSES NEEDED FOR 30 DAYS for 30 Active Cyclobenzaprine HCl 5 MG 1 tablet at bed time as needed Orally Once a day for 30 day(s) Active Gabapentin 100 MG 2 capsule Orally Onc e a day for 30 days Active Ofloxacin 0.3 % 10 drops into affect ed ear Otic twice a day for 7 days 07/27/2023 Active Prazosin HCl 2 MG 1 capsule at bedtime Orally Once a day for 30 day(s) Active Ibuprofen 600 MG 1 tablet with food o r milk as needed Orally once a day Active Magnesium Oxide 400 MG 1 tablet as neede d Orally Once a day for 30 day(s) Active traZODone HCl 100 MG 1 tablet at bedtime Orally Once a day for 30 day(s) Active Vitamin D (Ergocalciferol) 1.25 MG (87102 UT) TAKE 1 CAPSULE BY MOUTH WEEKLY Orally once a week for 84 days Not-Taking Loratadine 10 MG 1 tablet Orally Once a day for 90 days 12/01/2022 Active Xulane 150-35 MCG/24HR as directed Transdermal Active Fluticasone Propionate 50 MCG/ACT SPRAY 1 SPRAY INTO EACH NOSTRIL EVERY DAY FOR 90 DAYS for 90 Active Venlafaxine HCl 37.5 MG 1 tablet with fo od Orally Once a day for 30 day(s) Active Ciprofloxacin-dexAMETHason e 0.3-0.1 % 4 drops into affected ear Otic Twice a day for 7 days 09/07/2023 Active Vitamin D3 20 MCG (800 UNIT) 1 tablet Orally Once a day for 30 days 09/25/2023 Active Albuterol Sulfate HFA 108 (90 Base) MCG/ACT 1 puff as needed Inhalation every 4 hrs for 30 days 09/07/2023 Active Omeprazole 20 MG TAKE 1 CAPSULE BY MOUTH EVERY DAY 30 MINUTES BEFORE MORNING MEAL FOR 90 DAYS for 90 Active Ergocalciferol 1.25 MG (17730 UT) 1 capsule Orally once a week for 30 days Not-Taking Ergocalciferol 1.25 MG (02721 UT) 1 capsule every week Orally 12 weeks for 30 days 07/31/2023 Not-Taking Social History Tobacco Use: Social History Observation Description Date Details (start date - stop date) Never Smoker NA - NA Tobacco Use/Smoking Question Answer Notes Are you a nonsmoker Vital Signs Temperature 98.2 degrees Fahrenheit 05/30/19 25 Oximetry 99 % 05/29/2024 Heart Rate 82 /min 05/29/2024 Blood pressure systolic 122 mm Hg 05/30/19 25 Blood pressure diastolic 80 mm Hg 025 Weight 187.1 lbs 05/29/2024 BMI 35.35 kg/m2 05/29/2024 Height 61 in 05/29/2024 Encounters Encounter Location Date Provider Diagnosis [facility] [address] [address] 05/29/2024 BEAN DAVIDSON Annual physical exam Z00.00 ; Generalized anxiety disorder F41.1 ; Major depressive disorder, recurrent, moderate F33.1 ; Migraine with aura, not intractable, without status migrainosus G43.109 ; Vitamin D deficiency E55.9 ; Encounter for screening for cardiovascular disorders Z13.6 ; Postnasal drip R09.82 ; Otalgia, unspecified ear H92.09 and Otalgia, right ear H92.01 Assessments Encounter Date Diagnosis (ICD Code) Assessment Notes Treatment Notes Treatment Clinical Notes Section Notes 05/29/2024 Annual physical exam (ICD-10 - Z00.00) is 33 years old Faroese speaking lady who is accompanied by her [...] date do not need specific screening. 05/29/2024 Generalized anxiety disorder (ICD-10 - F41.1) is 33 years old Faroese speaking lady who is accompanied by her [...] date do not need specific screening. 05/29/2024 Major depressive disorder, recurrent, moderate (ICD-10 - F33.1) is 33 years old Faroese speaking lady who is accompanied by her [...] (ICD-10 - G43.109) is 33 years old Faroese speaking lady who is accompanied by her [...] date do not need specific screening. 05/29/2024 Vitamin D deficiency (ICD-10 - E55.9) is 33 years old Faroese speaking lady who is accompanied by her [...] (ICD-10 - Z13.6) is 33 years old Faroese speaking lady who is accompanied by her [...] date do not need specific screening. 05/29/2024 Postnasal drip (ICD-10 - R09.82) is 33 years old Faroese speaking lady who is accompanied by her [...] (ICD-10 - H92.09) is 33 years old Faroese speaking lady who is accompanied by her [...] (ICD-10 - H92.01) is 33 years old Faroese speaking lady who is accompanied by her [...] not need specific screening. Plan Of Treatment Medication Medication Name Sig Start Date Stop Date Notes Ofloxacin 0.3 % 10 drops into affect ed ear Otic twice a day for 7 days 07/27/2023 Loratadine 10 MG 1 tablet Orally Once a day for 90 days 12/01/2022 Fluticasone Propionate 50 MCG/ACT SPRAY 1 SPRAY INTO EACH NOSTRIL EVERY DAY FOR 90 DAYS for 90 Next Appt Details Follow Up: 1 Year- CPE, Reas on: Provider Name:BEAN DAVIDSON , 06/02/2025 01:00:00 PM, [address] [place] [address], [phone], Progress Notes * EILEENTracy ROJASDOB:1990 (33 yo F)Acc No.[id number]:05/29/2024 Progress Notes Patient:?ELIZABETHLUIS ETracy ROJAS Provider:?BEAN DAVIDSON MD :1990???Age:33 Y???Sex:Female D ate:05/29/2024 Address:[address] [place] [address] [id number] Subjective: * Chief Complaints: * ???CPE * HPI: ???Internal Medicine:?Mrs. Boswell is a 32-year-old Faroese-speaking lady with anxiety/depression/PTSD, migraine headaches followed by neurology, right knee pain and low back pain and follows up with Dr. Payne here for? annual physical.? She is accompanied by her .? She complained of postnasal dripping and stuffy nose and bilateral ear pain and discomfort.? She uses Flonase nasal spray.? She has seasonal allergies.? She uses a cane to walk because of lower back pain and she goes to physiatry.? She also sees psychiatry for her anxiety/depression and insomnia.? She needs help with activities of daily living at home including transferring, at times dressing, showering, toileting because of her degenerative disc disease and fibromyalgia.? No other issues. * ROS:?General/Constitutional:?Overall health?Good.?Change in appetite?denies.?Chills?denies.?Denies?Fatigue.?Fever?denies.?Headache?admits, is a dull ache.?Night sweats?denies.?Sleep disturbance?denies.?Weight gain?denies.?Weight loss?denies.?Neurologic:?Difficulty speaking?denies.?Dizziness?denies.?Gait abnormality?denies.?Headache?admits.?Loss of strength?denies.?Memory loss?denies.?Seizures?denies.?Tingling/Numbness?denies.?Ophthalmologic:?Blurred vision?denies.?Discharge?denies.?Dry eye?denies.?Red eye?denies.?ENT:?Change in Voice?Denies.?Cold Symptoms?Denies.?Cough?Denies.?Dizziness?Denies.?Nasal Congestion?Denies.?Otalgia?, Denies.?postnasal drip?,Admit.?Blocked ear?denies.?Nosebleed?denies.?Snoring?denies.?Cardiovascular:?Diaphoresis?Denies.?Pedal Edema?Denies.?PND (Paroxsymal nocturnal dyspnea)?Denies.?Difficulty laying flat?denies.?Dyspnea on exertion?denies.?Heart murmur?denies.?Orthopnea?denies.?Respiratory:?Snoring?denies.?Asthma?denies.?Cough?denies.?Denies?Hemoptysis.?Admits?[place] n with inspiration.?Denies?Shortness of breath,?, denies.?Shortness of breath with exertion?denies.?Sputum production?, denies.?Wheezing?, denies.?Gastrointestinal:?Change in bowel habits?denies.?Constipation?denies.?Decreased appetite?denies.?Diarrhea?denies.?Heartburn?denies.?Nausea?denies.?Vomiting?kelsea es.?Musculoskeletal:?tingling/numbness?Admits.?myalgias?Denies.?Joint Swelling?Denies.?extremeties?normal.?Arthritis?denies.?Back problems?,admits.?Carpal tunnel?denies.?Joint stiffness?denies.?Muscle aches?denies.?Endocrine:?Bowel Changes?Denies.?Breast Discharge?Denies.?poor libido?Denies.?Cold intolerance?denies.?Excessive sweating?denies.?Excessive thirst?denies.?Frequent urination?denies.?Thyroid problems?denies.?Skin:?Bruising?Admits.?Eczema?denies.?Hair changes?denies.?Rash?denies.?Skin lesion(s)?denies.?Psychiatric:?Anxiety?,admits.? She? follow psychiatry.?Depressed mood?, admits.?Difficulty sleeping?denies.?Nervous breakdown?denies.?Substance abuse?denies.?Urology:?abnormal menstrual bleeding?denies.?blood in urine?denies.?burning on urination?denies.?difficulty urinating?denies.?discharge?denies.?dysuria?denies.? * Medical History:? * Surgical History:?lump remov ed from right breast * Hospitalization/Major Diagno stic Procedure:? * Family History:?Mother: dece ased, diagnosed with Stroke.?Maternal uncle: diagnosed with Diabetes, Hypertension, Heart Disease.? * Social History:?Tobacco Use:?Tobacco Use/Smoking?Are you a?nonsmoker ???Miscellaneous:?Exercise: no. ?Marital status: . ?Occupation: Unemployed. * Medications:?TakingXulane 15 0-35 MCG/24HR Patch Weekly as directed Transdermal Venlafaxine HCl 37.5 MG Tablet 1 tablet with food Orally Once a day traZODone HCl 100 MG Tablet 1 tablet at bedtime Orally Once a day Prazosin HCl 2 MG Capsule 1 capsule at bedtime Orally Once a day Magnesium Oxide 400 MG Tablet 1 tablet as needed Orally Once a day Ibuprofen 600 MG Tablet 1 tablet with food or milk as needed Orally once a day FLUoxetine HCl 20 MG Capsule 1 capsule Orally Once a day Doxepin HCl 25 MG Capsule 1 capsule at bedtime Orally Once a day Cyclobenzaprine HCl 5 MG Tablet 1 tablet at bedtime as needed Orally Once a day SUMAtriptan Succinate 50 MG Tablet TAKE 1 TABLET BY MOUTH TWICE A DAY AT LEAST 2 HOURS BETWEEN DOSES NEEDED FOR 30 DAYS Loratadine 10 MG Tablet 1 tablet Orally Once a day Gabapentin 100 MG Capsule 2 capsule Orally Once a day Ofloxacin 0.3 % Solution 10 drops into affected ear Otic twice a day Ciprofloxacin-dexAMETHasone 0.3-0.1 % Suspension 4 drops into affected ear Otic Twice a day Albuterol Sulfate HFA 108 (90 Base) MCG/ACT Aerosol Solution 1 puff as needed Inhalation every 4 hrs Vitamin D3 20 MCG (800 UNIT) Tablet 1 tablet Orally Once a day Omeprazole 20 MG Capsule Delayed Release TAKE 1 CAPSULE BY MOUTH EVERY DAY 30 MINUTES BEFORE MORNING MEAL FOR 90 DAYS Fluticasone Propionate 50 MCG/ACT Suspension SPRAY 1 SPRAY INTO EACH NOSTRIL EVERY DAY FOR 90 DAYS Taking Xulane 150-35 MCG/24HR Patch Weekly as directed Transdermal Taking Venlafaxine HCl 37.5 MG Tablet 1 tablet with food Orally Once a day Taking traZODone HCl 100 MG Tablet 1 tablet at bedtime Orally Once a day Taking Prazosin HCl 2 MG Capsule 1 capsule at bedtime Orally Once a day Taking Magnesium Oxide 400 MG Tablet 1 tablet as needed Orally Once a day Taking Ibuprofen 600 MG Tablet 1 tablet with food or milk as needed Orally once a day Taking FLUoxetine HCl 20 MG Capsule 1 capsule Orally Once a day Taking Doxepin HCl 25 MG Capsule 1 capsule at bedtime Orally Once a day Taking Cyclobenzaprine HCl 5 MG Tablet 1 tablet at bedtime as needed Orally Once a day Taking SUMAtriptan Succinate 50 MG Tablet TAKE 1 TABLET BY MOUTH TWICE A DAY AT LEAST 2 HOURS BETWEEN DOSES NEEDED FOR 30 DAYS Taking Loratadine 10 MG Tablet 1 tablet Orally Once a day Taking Gabapentin 100 MG Capsule 2 capsule Orally Once a day Taking Ofloxacin 0.3 % Solution 10 drops into affected ear Otic twice a day Taking Ciprofloxacin-dexAMETHasone 0.3-0.1 % Suspension 4 drops into affected ear Otic Twice a day Taking Albuterol Sulfate HFA 108 (90 Base) MCG/ACT Aerosol Solution 1 puff as needed Inhalation every 4 hrs Taking Vitamin D3 20 MCG (800 UNIT) Tablet 1 tablet Orally Once a day Taking Omeprazole 20 MG Capsule Delayed Release TAKE 1 CAPSULE BY MOUTH EVERY DAY 30 MINUTES BEFORE MORNING MEAL FOR 90 DAYS Taking Fluticasone Propionate 50 MCG/ACT Suspension SPRAY 1 SPRAY INTO EACH NOSTRIL EVERY DAY FOR 90 DAYS Not-TakingErgocalciferol 1.25 MG (97804 UT) Capsule 1 capsule every week Orally 12 weeks Ergocalciferol 1.25 MG (63802 UT) Capsule 1 capsule Orally once a week Vitamin D (Ergocalciferol) 1.25 MG (12436 UT) Capsule TAKE 1 CAPSULE BY MOUTH WEEKLY Orally once a week Medication List reviewed and reconciled with the patientNot- Taking Ergocalciferol 1.25 MG (92611 UT) Capsule 1 capsule every week Orally 12 weeks Not-Taking Ergocalciferol 1.25 MG (56790 UT) Capsule 1 capsule Orally once a week Not-Taking Vitamin D (Ergocalciferol) 1.25 MG (60019 UT) Capsule TAKE 1 CAPSULE BY MOUTH WEEKLY Orally once a week Medication List reviewed and reconciled with the patient * Allergies:?N.K.D.A.no[Allerg ies Verified] Objective: * Vitals:?Temp:98.2F, Oxygen s at %:99%, HR:82/min, BP:122/80mm Hg, Wt:187.1lbs, BMI:35.35Index, Ht: 61 in. * ???Past Orders: Lab:Vitamin D, 41-Ldgcieu-57 1950 * Collection Date 09/23/2023 07/28/2023 Collection Time 01:06 PM 12:56 PM Order Date 09/07/2023 07/27/2023 Vitamin D, 25-Hydroxy 23.7?L (Ref Range: 30.0-100.0 ng/mL) 11.9?L (Ref Range: 30.0-100.0 ng/mL) ???Lab:CBC with Diff, Platelet, [id number] (Order Date - 07/27/2023) (Collection Date & Time - 07/28/2023 12:56 PM)?ValueReference Range?WBC7.13.4- 10.8 - x10E3/uL?RBC4.413.77-5.28 - x10E6/uL?Wcuwmellml82.411.1- 15.9 - g/dL?Iwgjyiamca53.634.0-46.6 - %?BPX4926-77 - fL?MCH 25.9L26.6-33.0 - pg?MCHC31.1L31.5-35.7 - g/dL?RDW14.111.7-15.4 - % ?Tgcgbqgpt671770-609 - x10E3/uL?Ouvhnqwnjpf81Mdu Estab. - % ?Tjaxxq90Jyn Estab. - %?Vvtkyaeyc2Eng Estab. - %?Ved3Mfb Estab. - %?Ahloc5Jwr Estab. - %?Neutrophils (Absolute)4.61.4-7.0 - x10E3/uL?Lymphs (Absolute)1.90.7-3.1 - x10E3/uL?Neut/Lymph Ratio 2.40.0-2.9 - ratio?Monocytes(Absolute)0.30.1-0.9 - x10E3/uL?Eos (Absolute)0.20.0-0.4 - x10E3/uL?Baso (Absolute)0.00.0-0.2 - x10E3/uL ?Immature Wikumasllrjo8Gbg Estab. - %?Immature Grans (Abs)0.00.0- 0.1 - x10E3/uL ???Lab:Comp. Metabolic Panel [id number] (Order Date - 07/27/2023) (Collection Date & Time - 07/28/2023 12:56 PM)?ValueReference Range?Zenrxqg60 70-99 - mg/dL?BRC031-62 - mg/dL?Creatinine0.630.57-1.00 - mg/dL ?BUN/Creatinine Mzero593-25 -?Oqrabb604895-449 - mmol/L ?Potassium4.33.5-5.2 - mmol/L?Jqkrhpan18791-358 - mmol/L ?Carbon Dioxide, Ukvrp5759-24 - mmol/L?Calcium9.18.7-10.2 - mg/dL ?Protein, Total6.36.0-8.5 - g/dL?Albumin4.04.0-5.0 - g/dL ?Globulin, Total2.31.5-4.5 - g/dL?Bilirubin, Total0.60.0-1.2 - mg/dL?Alkaline Byjygealagw7511-218 - IU/L?AST (SGOT)120-40 - IU/L ?ALT (SGPT)90-32 - IU/L?fHQR330>59 - mL/min/1.73 * Examination: ???General Examination: ?Psychiatry?Depression.?GENERAL APPEARANCE:?Well developed, well nourished, in no acute distress.?MUSCULOSKELETAL:?mildly decreased?ROM?of Rt Knee joint, left hand is in a brace,?pain on palpation on the back.?HEAD:?Normocephalic, atraumatic.?EYES:?Pupils equal, round, reactive to light and accommodation, sclera non-icteric.?EARS:?auditory canal clear, tympanic membrane is intact but dull.?ORAL CAVITY:?Normal.?THROAT:?normal .?OROPHARYNX?Normal.?SINUSES?Normal.?NECK/THYROID:?decreased ROM in all planes no cervical lymphadenopathy.?SKIN:?Warm and dry, no suspicious lesions.?No erythema, not warm to touch, non-tender.?HEART:?Normal.?LUNGS:?Normal.?BREASTS:?__.?ABDOMEN:?Soft, nontender, nondistended, bowel sounds present, normal.?EXTREMITIES:?Normal.?PERIPHERAL PULSES:?Normal.?NEUROLOGIC:?alert and oriented cooperative with exam cranial nerves 2-12 grossly intact deep tendon reflexes 2+ symmetrical neck supple no rigidity no tremor,??b/l, tone and reflexes and sensory exam intact,??she walks with a cane, motor strength 3.5-4/5 .?FEMALE GENITOURINARY:?__.?MALE GENITOURINARY:?__.?PODIATRIC:?Normal.?Safety Relief Valve Technician? .? Assessment: * Assessment: 1.?Annual physical exam - Z0 0.00 (Primary)???2.?Generalized anxiety disorder - F41.1???3.?Major depressive disorder, recurrent, moderate - F33.1???4.?Migraine with aura, not intractable, without status migrainosus - G43.109???5.?Vitamin D deficiency - E55.9???6.?Encounter for screening for cardiovascular disorders - Z13.6???7.?Postnasal drip - R09.82???8.?Otalgia, unspecified ear - H92.09???9.?Otalgia, right ear - H92.01??? is 33 years old A rabic speaking lady who is accompanied by her for an annual physical.? She has generalized anxiety disorder/depression, migraine headaches and she sees neurologist, vitamin D deficiency, fibromyalgia, chronic pain syndrome, lower back pain and she follows with physiatry.? She also complains of postnasal dripping.? Plan is as follows Migraine headaches.? She follows up with Dr. Meraz and she is on sumatriptan 50 mg as needed. Generalized anxiety disorder/depression/insomnia.? She follows up with psychiatry Dr. Britton and her symptoms are pretty much under control at this point in time. Chronic pain syndrome/fibromyalgia.? She follows up with physiatry Dr. Payne.? She had intra-articular injection in the right lower back area.? She uses a cane to walk.? She needs help with activities of daily living like dressing, preparing meals, laundry and transferring.? Her primarily take care of her. Postnasal.? It can be seasonal allergies or sinusitis.? She is given Flonase nasal spray. Vitamin D deficiency.? She has done high-dose vitamin D3 in the past.? We will check weight daily levels Screening blood work ordered.? She is up to date do not need specific screening. Plan: * Treatment: 2.?Vitamin D deficiency?LAB: 25-Hydroxyvitamin D LCMS D2+D3-251599 (Ordered for 05/29/2024) 3.?Encounter for screening f or cardiovascular disorders?LAB: Comp. Metabolic Panel [id number] (Ordered for 05/29/2024) ?LAB: Lipid Panel-[id number] (Ordered for 05/29/2024) 4.?Postnasal drip? Refill Fluticasone Propionate Suspension, 50 MCG/ACT, SPRAY 1 SPRAY INTO EACH NOSTRIL EVERY DAY FOR 90 DAYS, 90, 32 Milliliter, Refills 4;?Refill Loratadine Tablet, 10 MG, 1 tablet, Orally, Once a day, 90 days, 90 Tablet, Refills 3.?? 5.?Otalgia, right ear? Refill Ofloxacin Solution, 0.3 %, 10 drops into affected ear, Otic, twice a day, 7 days, 7 ML, Refills 0.?? * Procedure Codes:?3074F SYST BP LT 130 MM [id number] DIAST BP 80-89 MM [id number] BRIEF EMOTIONAL/BEHAV ASSMT * Follow Up:?1 Year- CPE * Images: * Sign off status: Completed true * Provider:?BEAN DAVIDSON MD Date:?05/29 Generated for Lexx hood/Livan/Kumar on:?06/12/2024 01:49 PM EDT History and Physical Notes * HPI (History of Present Illness) Category Sub-Category Detail Notes Category Not es Internal Medicine Mrs. Jagdish haro is a 32-year-old Faroese-speaking lady with anxiety/depression/PTSD, migraine headaches followed by neurology, right knee pain and low back pain and follows up with Dr. Payne here for annual physical. She is accompanied by her . She complained of postnasal dripping and stuffy nose and bilateral ear pain and discomfort. She uses Flonase nasal spray. She has seasonal allergies. She uses a cane to walk because of lower back pain and she goes to physiatry. She also sees psychiatry for her anxiety/depression and insomnia. She needs help with activities of daily living at home including transferring, at times dressing, showering, toileting because of her degenerative disc disease and fibromyalgia. No other issues Examination Category Sub-Category Detail Notes Category Not es General Examination GENERAL APPEARANCE: Well dev eloped, well nourished, in no acute distress HEAD: Normocephalic, atrau matic EYES: Pupils equal, round, reactive to light and accommodation, sclera non-icteric EARS: auditory canal clear , tympanic membrane is intact but dull THROAT: normal NECK/THYROID: decreased ROM in all planes no cervical lymphadenopathy HEART: Normal LUNGS: Normal ABDOMEN: Soft, nontender, non distended, bowel sounds present, normal NEUROLOGIC: alert and oriented c ooperative with exam cranial nerves 2-12 grossly intact deep tendon reflexes 2+ symmetrical neck supple no rigidity no tremor, b/l, tone and reflexes and sensory exam intact, she walks with a cane, motor strength 3.5-4/5 SKIN: Warm and dry, no sin picious lesions. No erythema, not warm to touch, non-tender EXTREMITIES: Normal PERIPHERAL PULSES: Normal BREASTS: __ MUSCULOSKELETAL: mildly decreased ROM of Rt Knee joint, left hand is in a brace, pain on palpation on the back MALE GENITOURINARY: __ FEMALE GENITOURINARY: __ ORAL CAVITY: Normal PODIATRIC: Normal Psychiatry Depression OROPHARYNX Normal SINUSES Normal Safety Relief Valve Technician
--- OUTSIDE RECORDS SUMMARY | 2024-06-12 13:49 | XMS_ITS | Clinical Summary ---
Author Organization [facility] Address [address] [place] [address] Care Team Providers Care Dispatch Supervisor Name Role Phone Leatha Wilson PA-C Primary Care Provider [phone] Source Comments PLEASE NOTE, if this patient is a minor, it may be UNLAWFUL to discuss sensitive information that is contained in these records (such as FAMILY PLANNING, MENTAL HEALTH or SUBSTANCE ABUSE) with the minor patient's parent or other person without the patient's specific authorization.[facility] Allergies No known active allergies Medications XULANE 150-35 mcg/24 hr patch APPLY Q PATCH TOPICALLY 5 9 Active vit-iron fum-folic ac 27 mg iron- 0.8 mg tabIndications:L ess than 8 weeks gestation of ([facility]) Take 1 Tab by mouth once daily 90 Tab 5 0 Active FLUoxetine (PROZAC) 20 mg capsule 1 Active traZODone (DESYREL) 100 mg tablet 1 Active venlafaxine (EFFEXOR) 37.5 mg tablet Take 37.5 mg by mouth once daily 1 Active prazosin (MINIPRESS) 2 mg capsule 1 Active omeprazole (PRILOSEC) [address] capsule Take 20 mg by mouth once daily 1 Active doxepin (SINEQUAN) 25 mg capsule 1 Active cyclobenzaprine (FLEXERIL) 5 mg tablet Take 5 mg by mouth once daily as needed 1 Active magnesium oxide (MAG-OX) 400 mg (241.3 mg magnesium) tablet Take 1 Tablet by mouth once daily 90 Tablet 1 1 Active SUMAtriptan succinate (IMITREX) 50 mg tabletIndication s:Migraine without status migrainosus, not intractable, unspecified migraine type Take 1 Tablet by mouth once daily FOR UP TO 1 (ONE) DOSE DAILY, NEEDED FOR MIGRAINES!! 20 Tablet 1 1 Active ibuprofen 600 mg tablet Take 1 Tablet by mouth once daily NEEDED FOR PAIN!! 30 Tablet 2 1 Active Active Problems Problem Noted Date Diagnosed Date Migraine without status migrainosus, not intract able 10/02/2020 PTSD (post-traumatic stress disorder) 08/24/2018 Severe depression ([facility]) 08/24/2018 Vitamin B12 deficiency 08/24/2018 ([facility]) 08/26/2017 Chronic low back pain 11/05/2015 Immunizations Immunization Administration Dates Next Due Flu, Preservative Free 11/26/2018 Hep B, Adult/Adol (ENERGIX/RECOMBIVAX) 6 INFLUENZA, SEASONAL, INJECTABLE, PRESERVATIVE FR EE 11/05/2015 MMR (MMR II/Priorix) 08/01/2015,07/01/2015 TDAP 06/28/2016,09/23/2015 Social History Tobacco Use Types Packs/Day Years Used Date Smoking Tobacco: Never Smokeless Tobacco: Never Alcohol Use Standard Drinks/Week Comments Never 0 (1 standard drink = 0.6 oz pur e alcohol) Social Connections Answer Date Recorded Connectedness 0 10/02/2020 Financial Resource Strain Answer Date R ecorded Financial Resource Strain 0 2020 Stress Answer Date Recorded Stress 0 10/02/2020 Physical Activity Answer Date Recorded Physical Activity 0 09/25/2018 Food Insecurity Answer Date Recorded Food 0 10/02/2020 Transportation Needs Answer Date Record ed Transportation 0 10/02/2020 Housing Stability Answer Date Recorded Housing 0 10/02/2020 Safety and Environment Answer Date Alfonso rded Safety 0 10/02/2020 Utilities Answer Date Recorded Utilities 0 10/02/2020 Employment Answer Date Recorded Employment 0 09/25/2018 Comments No Sex and Gender Information Value Date Recorded Sex Assigned at Female 07/06/2017 10:55 AM PDT Legal Sex Female 11:04 AM PDT Gender Identity Female 07/06/2017 10:55 AM PDT Sexual Orientation Straight 07/06/2017 10 :55 AM PDT Last Filed Vital Signs Vital Sign Reading Time Taken Comments Blood Pressure 102/82 10/02/2020 9:08 AM EDT Pulse 62 10/02/2020 9:08 AM EDT Temperature 37 ??C (98.6 ??F) 10/02/2020 9:0 8 AM EDT incorrect temp pt is fasting Respiratory Rate 18 10/02/2020 9:08 AM EDT Oxygen Saturation - - Inhaled Oxygen Concentration - - Weight 75.8 kg (167 lb) 10/02/2020 9:08 AM EDT Height 158 cm (5' 2.21 ) 10/02/2020 9:0 8 AM EDT Body Mass Index 30.34 10/02/2020 9:08 AM EDT Plan of Treatment Not on file Insurance [facility] D[facility]AL [facility] DENTAL [id number] [employer] Care Teams Dispatch Supervisor Relationship Specialty Start Date End Date Leatha Wilson PA-C [address] [place] [address] PCP - General FAMILY MEDICINE, [place] 03/10/20
--- OUTSIDE RECORDS SUMMARY | 2024-06-12 13:50 | XMS_ITS | Clinical Summary ---
Author Organization [facility] Address [address] [place] [address] Phone Care Team Providers Care Geomatics Professor Name Role Phone Jacob Min MD Primary Care Provider [phone] Allergies No known active allergies Medications venlafaxine (EFFEXOR) 37.5 MG tablet Take 37.5 mg by mouth in the morning. 1 Active traZODone (DESYREL) 100 MG tablet Take 200 mg by mouth every night Active topiramate (TOPAMAX) 25 MG tablet Take 25 mg by mouth 1 (one) time each day if needed 3 Active Vit-Fe Fumarate-FA (M-Barry Plus) 27-1 MG tablet Take 1 tablet by mouth 1 (one) time each day 4 Active prazosin (MINIPRESS) 2 MG capsule Take 2 mg by mouth at bed time 1 Active omeprazole (PriLOSEC) [address] capsule Take 20 mg by mouth 1 (one) time each day 4 Active Magnesium 200 MG tablet Take 200 mg by mouth 1 (one) time each day 4 Active loratadine (CLARITIN) 10 MG tablet Take 10 mg by mouth 1 (one) time each day 4 Active gabapentin (NEURONTIN) 100 MG capsule Take 200 mg by mouth 1 (one) time each day 4 Active ibuprofen (ADVIL,MOTRIN) 600 MG tablet Take 600 mg by mouth every 6 (six) hours if needed 4 Active fluticasone (FLONASE) 50 MCG/ACT nasal spray Administer 1 spray into each nostril 1 (one) time each day 4 Active FLUoxetine (PROzac) 20 MG capsule Take 20 mg by mouth 1 (one) time each day Active ergocalciferol 1.25 MG (59790 UT) capsule Take 50,000 Units by mouth 1 (one) time per week 4 Active cyclobenzaprine (FLEXERIL) 10 MG tablet Take 10 mg by mouth 1 (one) time each day if needed 3 Active SUMAtriptan (IMITREX) 50 MG tablet Take 50 mg by mouth 2 (two) times a day if needed for migraine With at least 2 hour between doses 1 Active Blood Pressure Monitoring (Omron 3 Series BP Monitor) device 1 Device 1 (one) time each day 1 each 4 Active Active Problems Problem Noted Date Diagnosed Date RhD negative 10/25/2023 of unknown location 10/25/2023 Obese class I 10/25/2023 Migraine 10/25/2023 Overview (10/25/2023): Gets often, took medication for it but stopped with . Took them about every 2-3days. Body mass index 25-29 - overweight 10/25/2023 Anemia of 10/25/2023 Migraine 10/02/2020 Vitamin B12 deficiency 08/24/2018 Severe depression 08/24/2018 Posttraumatic stress disorder 08/24/2018 08/26/2017 Chronic low back pain 11/05/2015 Social History Tobacco Use Types Packs/Day Years Used Date Smoking Tobacco: Never Assessed Comments No Sex and Gender Information Value Date Recorded Sex Assigned at Not on file Legal Sex Female 3:56 PM EDT Gender Identity Not on file Sexual Orientation Not on file Last Filed Vital Signs Vital Sign Reading Time Taken Comments Blood Pressure 128/80 10/25/2023 2:06 PM EDT Pulse 72 09/15/2023 11:21 AM EDT Temperature - - Respiratory Rate - - Oxygen Saturation 98% 09/15/2023 11:21 AM EDT Inhaled Oxygen Concentration - - Weight 82.6 kg (182 lb) 10/25/2023 2:06 PM EDT Height 160 cm (5' 3 ) 09/15/2023 11:21 AM EDT Body Mass Index 32.24 09/15/2023 11:21 AM EDT Plan of Treatment Health Maintenance Due Date Last Done Comments Hepatitis B Vaccine (1 of 3 - 19+ 3-dose series) 08/04/2011 11/05/2015 Pneumococcal Vaccine: Peds ( 0 to 5 Years) and At-Risk Patients (6 to 49 Years) (1 of 2 - PCV) 08/04/2011 Influenza Vaccine (Season Ended) 2024 11/27/19 19, 11/05/2015 Insurance Care Teams Geomatics Professor Relationship Specialty Start Date End Date Jacob Min MD [address] [place] [address], [address] [place] [address] PCP - General Internal Medicine 08/01/23
--- OUTSIDE RECORDS SUMMARY | 2024-06-12 13:50 | XMS_ITS ---
Author Organization [facility] Address [address] [place] [address] Care Team Providers Care Brine Well Operator Name Role Phone BEAN DAVIDSON Primary Care Provider REASON FOR VISIT Mass DTA Form Encounters Encounter Location Date Provider Diagnosis [facility] [address] [place] [address] 12/20/2023 BEAN DAVIDSON Plan Of Treatment Next Appt Details Provider Name:BEAN DAVIDSON , 06/02/2025 01:00:00 PM, [address], [place], [address], Progress Notes * Tracy DENISDOB:1990 (33 yo F)Acc No.[id number]:12/20/2023 Patient:?Tracy DENIS :1990???Age:33 Y???Sex:Female Address:[facility] [place], [address] * true * Date:? Generated for Printi ng/Farennyg/eTransmitting on:?06/12/2024 01:49 PM EDT
== END 2024-06-12 12:46 | disposition home or self-care (01) ==
LOC: HO.RESP 12:45
PROVIDERS: PCP Hospitalist; Visit Provider Nurse Practitioner Family
DX: R06.09 Other forms of dyspnea (principal)
CPT/HCPCS: 94010; 94640; 94727; 94729

== ENCOUNTER → 2024-06-12 12:45 | Outpatient (BNV) | payer OTHER, SELFPAY | PROVIDERS: PCP Hospitalist; Visit Provider Hospitalist | DX: R06.09 Other forms of dyspnea (principal) | CPT/HCPCS: 94060; 94727; 94729 ==

== ENCOUNTER 2024-07-22 14:46 | Outpatient (AMB) | payer OTHER, SELFPAY ==
--- NOTE | 2024-07-22 14:50 | A.OFFVIS_ITS ---
Vital Signs 07/22/24 14:51 Height 5 ft 3 in Weight 186 lb 4.65 oz BMI 33.0 BP 120/76 Blood Pressure Location Lt brachial Position Sitting Pulse 90 Pulse Source Pulse Oximeter Pulse Oximetry (%) 99 Oxygen Delivery Method Room Air Intake Visit Reasons: Dyspnea on Exertion Environmental Compliance Specialist Required: Yes Environmental Compliance Specialist Language: Swedish Environmental Compliance Specialist Services: Environmental Compliance Specialist Present Environmental Compliance Specialist Name: [id number] Afaf Allergies No Known Allergies Allergy (Verified 07/22/24 14:58) HPI HPI Dyspnea on Exertion: Details: Tracy is a pleasant 33 year old female, never smoker, with underlying HTN, GERD and anxiety. She initially reported more notable wheezing, chest tightness and dyspnea on exertion over the last 4-5 months and was empirically started on Arnuity for asthma. She reported significant improvements when using unfortunately ran out of refills so has been more symptmatic over the last month. Of note, patient at the end of first trimester under the care of OBGYN. Today she presents to review PFT. She denies any visits to urgent care or hospitalizations related to respiratory distress since the last visit. [facility] Social History (Updated 07/22/24 @ 14:57 by Lachelle Robles [facility]) Patient Tobacco Use Status: Never used Tobacco Review of Systems Const Denies chills, Denies excessive sweating, Denies fever(s), Denies headache(s) and Denies night sweats Eyes Denies dry eyes, Denies irritation and Denies itchy eyes ENT Reports Normal hearing present, Denies headache(s), Denies nasal congestion, Denies nasal discharge and Denies sore throat Card Denies chest pain, Denies chest pain at rest, Denies chest pain with activity, Denies claudication, Reports dyspnea on exertion, Denies orthopnea and Denies paroxysmal nocturnal dyspnea Resp Denies chest congestion, Denies cough, Denies excessive phlegm production, Denies pain on inspiration, Denies pain with cough, Reports dyspnea on exertion, Denies stridor and Reports wheezing Musc Denies myalgias Neuro Reports Normal hearing present and Denies headache(s) Endo Denies excessive sweating Stephan/Lymph Denies lymphadenopathy Aller/Immun Denies itchy eyes, Denies seasonal rhinorrhea and Reports wheezing Physical Exam Vital Signs: Last Vital Signs Pulse 90 07/22/24 14:51 BP 120/76 07/22/24 14:51 Pulse Ox 99 06/16/25 14:51 Oxygen Delivery Method Room Air 07/22/24 14:51 BMI result Body Mass Index 33.0 Const General: cooperative, healthy appearing, comfortable, no acute distress, well developed and alert Orientation/consciousness: patient oriented x3 Limitations: no limitations HEENT Head: Yes normal to inspection, Yes normocephalic and Yes atraumatic Ears: hearing grossly normal bilaterally and external ears normal Eyes General: appearance normal, both eyes and all related structures Eyelids: Yes eyelids normal Sclerae: sclerae normal EOM: EOMs intact bilaterally Neck Neck: Yes normal visual inspection and Yes no lymphadenopathy Lymphatic: no lymphadenopathy noted Chest Chest palpation & inspection: normal inspection of the chest Resp Effort & Inspection: normal respiratory effort, able to speak in complete sentences, no audible wheezes, no cough, no stridor, not tachypneic, no tripod positioning and no use of accessory muscles Auscultation: clear to auscultation bilaterally Cardio Jugular venous distension: no JVD Rate: regular rate Rhythm: regular rhythm Skin Other: warm, dry General skin exam: no rashes or lesions noted Neuro General: patient oriented x3 Cranial nerves: Yes Normal hearing present Cognition (Neuro): normal cognition Gait exam (Neuro): Normal gait present Extrem General: Yes normal to inspection, Yes capillary refill normal, Yes no clubbing, cyanosis or edema and Yes no pedal edema Psych Appearance: grossly normal and well kempt Speech and movement: Normal speech and movement present and Clear speech present Affect: normal affect Attitude: cooperative Thought process: Normal thought process present Thought content: Normal thought content present Insight: Good insight present (Psych) Judgement: Good judgement present (Psych) Assessment & Plan Assessment & Plan (1) Asthma: Code(s): J45.909 - Unspecified asthma, uncomplicated Category: Medical Plan Reviewed PFT which did not reveal any obstructive defect, with significant response to bronchodilator in small to medium airways suggestive of asthma. There was also note of mild restrictive defect, with normal DLCO, likely related to . Patient previously well controlled on Arnuity however d/c as she ran out of refills. Will refill. She is aware to call if symptoms become less controlled, will send albuterol. Discussed safety profile of ICS use in as reported from [employer]. All questions were answered and patient is in agreement of plan. Patient would like to follow up after delivery or sooner if needed. Medications: Refilled fluticasone furoate 100 mcg/actuation (Arnuity Ellipta) 1 inh inhalation DAILY 30 ea 11RF Coding Level of Care Code Est Pt Level 4 (79723) Diagnoses Asthma J45.909
[2024-07-22 14:51] VITALS: BP 120/76; PULSE 90; O2SAT 99; BMI 33.0
--- OUTSIDE RECORDS SUMMARY | 2024-07-22 16:32 | XMS_ITS | Clinical Summary ---
Author Organization [facility] Address [address] [place] [address] Care Team Providers Care Construction Craft Laborer Name Role Phone Leatha Wilson PA-C Primary Care Provider Source Comments PLEASE NOTE, if this patient [...] tabIndications:L ess than 8 weeks gestation of ([facility]) Take 1 Tab by mouth once daily [...] PTSD (post-traumatic stress disorder) 08/24/2018 Severe depression ([facility]) 08/24/2018 Vitamin B12 deficiency 08/24/2018 ([facility]) 08/26/2017 Chronic low back pain 11/05/2015 [...] Plan of Treatment Not on file Insurance [facility] D[facility] D[facility]AL [id number] [employer] Care Teams Construction Craft Laborer Relationship Specialty Start Date End Date Leatha Wilson PA-C [address] [place] [address] PCP - General [place] MEDICINE, [place] 03/10/20
== END 2024-07-22 15:19 | disposition home or self-care (01) ==
LOC: HO.HPS 14:47
PROVIDERS: PCP Hospitalist; Visit Provider Nurse Practitioner Family
DX: J45.909 Unspecified asthma, uncomplicated (principal)
CPT/HCPCS: 99214

== ENCOUNTER → 2024-07-22 14:46 | Outpatient (BNVA) | payer OTHER, SELFPAY | PROVIDERS: PCP Hospitalist; Visit Provider Nurse Practitioner Family | DX: R06.2 Wheezing (principal); K21.9 Gastro-esophageal reflux disease without esophagitis; I10 Essential (primary) hypertension; F41.9 Anxiety disorder, unspecified; R06.09 Other forms of dyspnea | CPT/HCPCS: 99212 ==